=== PATIENT | female | born 1995 | race Caucasian/White ===

== ENCOUNTER 2017-09-17 10:18 | Day surgery (SDC) | payer OTHER, MEDICAID, SELFPAY ==
--- NOTE | 2017-09-17 | PATH_ITS ---
[facility] Accession Number: [id number] . 01 Material submitted: . NO SITE DESIGNATED . 01 Clinical history: . A: FOR H. PYLORI . 02 Diagnosis: Stomach Biopsies: Mild chronic gastritis involving fundic mucosa. Negative for evidence of Helicobacter on H/E stain. Negative for intestinal metaplasia. Negative for dysplasia and malignancy. V/09/19/2017 . 02 Electronically signed: . Lj Acosta MD, Pathologist NPI- [id number] . 01 Gross description: . Received in one formalin-filled container, labeled with the patient's name, labeled biopsies for H. pylori, are two 0.1-0.3 cm portions of tissue, entirely submitted in one cassette. ([id number]) /FRR . 02 Pathologist provided ICD-10: K29.70 . 02 CPT . 582065 Performed at: 01 [facility] [address] [id number] MD Bart Ruiz MD Phone: [phone] Performed at: 02 [facility] [address] [place], [place] [id number] MD Amandeep Burroughs MD Phone: [phone]
[2017-09-17 10:37] VITALS: BMI 26.9
[2017-09-17 10:51] VITALS: BP 113/70; PULSE 69; RESP 15; TEMP 36.2; O2SAT 98
[2017-09-17] MEDS: SODIUM CHLORIDE 0.9% 1,000 ML 200 ML IV (10:57)
--- NOTE | 2017-09-17 11:54 | PM.PREOP ---
Pre-operative Note Interval Note Pre-op Check: History & Physical Reviewed by Physician and Exam Performed ASA Class (for procedural sedation): II
--- NOTE | 2017-09-17 11:56 | PM.OP.ENDO ---
Operative Date/Time/Diagnoses - Date of procedure: 09/17/17 Time of procedure: 11:56 Pre-op diagnosis: Nausea Post-op diagnosis: same Procedure & Clinicians Study performed: EGD Same procedure as scheduled: Yes Indications: Nausea Surgeon: Tamiko Guy Procedure Notes Procedure in detail: After informed consent was obtained the patient was placed in the left lateral decubitus position. The video upper scope was placed into the oropharynx with the patient's help swallowed into the esophagus. The esophagus, stomach, and duodenum were carefully examined. On withdrawal retroflex view the GE junction was performed. Scope was removed patient tolerated procedure well Blood loss none Complications none Findings: 1. Normal esophagus 2. 2 x 8 cm structure on the greater curvature/fundus there was non mobile but somewhat soft to palpation with biopsy forceps. Overlying mucosa was normal. 3. Distal gastric erythema biopsies taken to rule out Helicobacter 4. Normal duodenal bulb and sweep Scope withdrawal time: na Sedation minutes: 15 Plan for aftercare: Follow-up on biopsies. Continue current medications. Office will call to schedule endoscopic ultrasound to evaluate this submucosal/extrinsic compression lesion in the upper part of the stomach.
--- NOTE | 2017-09-17 12:00 | P.OP.ENDO_ITS ---
Operative Date/Time/Diagnoses - Date of procedure: 09/17/17 Time of procedure: 11:56 Pre-op diagnosis: Nausea Post-op diagnosis: same Procedure & Clinicians Study performed: EGD Same procedure as scheduled: Yes Indications: Nausea Surgeon: Tamiko Guy Procedure Notes Procedure in detail: After informed consent was obtained the patient was placed in the left lateral decubitus position. The video upper scope was placed into the oropharynx with the patient's help swallowed into the esophagus. The esophagus, stomach, and duodenum were carefully examined. On withdrawal retroflex view the GE junction was performed. Scope was removed patient tolerated procedure well Blood loss none Complications none Findings: 1. Normal esophagus 2. 2 x 8 cm structure on the greater curvature/fundus there was non mobile but somewhat soft to palpation with biopsy forceps. Overlying mucosa was normal. 3. Distal gastric erythema biopsies taken to rule out Helicobacter 4. Normal duodenal bulb and sweep Scope withdrawal time: na Sedation minutes: 15 Plan for aftercare: Follow-up on biopsies. Continue current medications. Office will call to schedule endoscopic ultrasound to evaluate this submucosal/ extrinsic compression lesion in the upper part of the stomach.
[2017-09-17 12:15] VITALS: BP 98/57; PULSE 54; RESP 13; O2SAT 96
[2017-09-17] MEDS: MIDAZOLAM 5 MG/5 ML VIAL IV (12:16)
[2017-09-17] MEDS: fentaNYL 250 MCG/5 ML INJ IV (12:16)
[2017-09-17 12:23] VITALS: BP 103/65; PULSE 53; RESP 11; O2SAT 95
[2017-09-17 12:24] VITALS: TEMP 36.6
[2017-09-17 12:25] VITALS: BP 101/69; PULSE 70; RESP 14; O2SAT 97
[2017-09-17 13:00] VITALS: BP 114/72; PULSE 65; RESP 15; TEMP 36.4; O2SAT 100
== END 2017-09-17 13:15 | disposition home or self-care (01) ==
PROVIDERS: PCP Physician Assistant; Visit Provider Internal Medicine Gastroenterology
PROC: 0DJ08ZZ Inspection of Upper Intestinal Tract, Via Natural or Artificial Opening Endoscopic (ICD-10-PCS; CPT 43235; principal; 2017-09-17 11:30)
DX: K29.70 Gastritis, unspecified, without bleeding (principal); F12.99 Cannabis use, unspecified with unspecified cannabis-induced disorder; F41.9 Anxiety disorder, unspecified
CPT/HCPCS: 43239; J2250; J3010

== ENCOUNTER 2020-05-25 19:20 | Emergency (ER) | payer SELFPAY ==
[2020-05-25 19:29] VITALS: BP 136/75; PULSE 73; RESP 17; TEMP 37.2; O2SAT 99; BMI 30.2
--- NOTE | 2020-05-25 20:04 | ED.DENTAL ---
HPI - Dental/Oral General Chief complaint: Dental/Oral Stated complaint: states abcess tooth, pain Time Seen by Provider: 05/25/20 19:23 Source: patient Mode of arrival: Ambulatory Limitations: no limitations History of Present Illness HPI Narrative: 24-year-old woman with a history of bipolar disorder presents with increasing right lower jaw tooth pain. She notes that tooth number 30 was broken off at the base through 4 months ago and has a particularly bothered her. Today she is having increasing swelling on the outer angle of the jaw and in the submandibular area she is not noticing any specific drainage. Jwhm-vme-bkwrtih medications and clove oil have been ineffective in controlling her pain. She does have an appointment with her dentist on June 02 for definitive care. The dentist recommended that she come to the emergency room for more urgent pain control. Onset (ago): hour(s) Duration: worsening Severity: severe Severity scale (1-10): 8 Relieving factors: nothing Exacerbating factors: nothing Context: poor dental care Related Data Previous Rx's Medication Instructions Recorded buspirone 15 mg tablet 15 mg PO QAM PRN #90 tab 06/04/19 metoclopramide HCl 10 mg tablet 10 mg PO QAC #60 tab 12/15/19 omeprazole 20 mg capsule,delayed 20 mg PO BID #180 cap 12/15/19 release fluoxetine 10 mg capsule 10 mg PO DAILY #30 cap 04/09/20 amoxicillin 500 mg PO TID #21 cap 05/25/20 oxycodone-acetaminophen 1 tab PO Q6H PRN #10 tab 05/25/20 Allergies Allergy/AdvReac Type Severity Reaction Status Date / Time ondansetron [From Zofran] AdvReac Mild Hives Verified 12/15/19 11:36 Review of Systems Review of Systems ROS Unobtainable: All systems reviewed & are unremarkable except as noted in HPI and below Patient History Medical History Contraception management GERD (gastroesophageal reflux disease) Surgical History Status post adenoidectomy Status post myringotomy with insertion of tube Family History Grandfather Age: 85 Melanoma Hypertension Hyperlipidemia Stroke Grandmother Age: 81 Heart disease Hypertension Hyperlipidemia Mother Age: 49 Hypertension Hyperlipidemia Psoriasis Psoriatic arthritis Social History household members: family Smoking Status: Never smoker second hand exposure: Yes (my fiance smokes around me outside.) alcohol intake: current (socially ) substance use type: marijuana (smokes every day ) Smoking Status: Never smoker alcohol intake frequency: holidays/special occasions only Substance Use Type: marijuana Exam Narrative Exam Narrative: General: Alert appropriate in no acute distress HEENT: Multiple dental caries. Tooth number 30 with fracture at the gumline. No obvious pointing abscess or drainage intraorally. Positive submandibular adenopathy and swelling over the angle of the jaw without warmth or pointing abscess formation. Respiratory: Able to speak in full sentences, no obvious respiratory distress Skin: No obvious rashes, warm and dry Neurologic: Grossly intact no obvious asymmetries or abnormalities Psych, appropriate insight and affect, cooperative Initial Vital Signs Initial Vital Signs: Vital Signs Temperature 99.0 F 05/25/20 19:29 Pulse Rate 73 05/25/20 19:29 Respiratory Rate 17 05/25/20 19:29 Blood Pressure 136/75 05/25/20 19:29 Pulse Oximetry 99 05/25/20 19:29 Course Orders Ordered: Discontinued Medications Amoxicillin (Amoxicillin 250 Mg Capsule) 500 mg PO NOW ONE Stop: 05/25/20 20:01 Ketorolac Tromethamine (Ketorolac 60 Mg/2 Ml Vial) 30 mg IM NOW ONE Stop: 05/25/20 20:00 Oxycodone/Acetaminophen (Oxycodone/Acetaminophen 5/325 Tablet) 1 tab PO NOW ONE Stop: 05/25/20 20:00 Vital Signs Vital signs: Vital Signs - 8 hr 05/25/20 19:29 Temperature 99.0 F Pulse Rate 73 Respiratory Rate 17 Blood Pressure 136/75 Pulse Oximetry 99 MDM - Dental/Oral MDM Narrative Medical decision making narrative: 24-year-old woman with a broken tooth now apparently developing into a dental infection. Will be treated with amoxicillin and pain control while she is awaiting definitive care with her dentist as scheduled. She is safe for home discharge Discharge Plan Departure Patient Disposition: Home Clinical Impression: Toothache, Dental abscess Fracture of tooth Qualifiers: Encounter type: initial encounter Fracture type: closed Qualified Code(s): S02.5XXA - Fracture of tooth (traumatic), initial encounter for closed fracture Instructions: DI for Dental Pain Activity Restrictions/Additional Instructions: Thank you for coming in today I suspect that tooth that is been broken out for a couple of months is getting an infection at the tip of the tooth still in your jaw. I am going to start you on amoxicillin. A prescription has been electronically transmitted to [facility] in [place]. Using 400 mg of ibuprofen (2 qhmd-cts-wvjycqd pills) and 1 Tylenol every 6 hours can be very helpful in controlling pain. For severe pain you can use 400 mg of ibuprofen and 1 Percocet Please keep your appointment scheduled on June 02 with your dentist. If you feel that things are getting worse please return to the ER Prescriptions: New oxycodone-acetaminophen 5-325 mg tablet 1 tab PO Q6H PRN (Reason: pain) Qty: 10 RF: 0 amoxicillin 500 mg capsule 500 mg PO TID Qty: 21 RF: 0 No Action buspirone 15 mg tablet 15 mg PO QAM PRN (Reason: ANXIETY) Qty: 90 RF: 1 fluoxetine 10 mg capsule 10 mg PO DAILY Qty: 30 RF: 1 metoclopramide HCl [Reglan] 10 mg tablet 10 mg PO QAC Qty: 60 RF: 0 omeprazole 20 mg capsule,delayed release(DR/EC) 20 mg PO BID Qty: 180 RF: 3 Referrals: Yasir Lucia DO [Primary Care Provider] -
[2020-05-25] MEDS: KETOROLAC 60 MG/2 ML VIAL 30 MG IM (20:07)
[2020-05-25] MEDS: OXYCODONE/ACETAMINOPHEN 5/325 TABLET 1 TAB PO (20:07)
[2020-05-25] MEDS: AMOXICILLIN 250 MG CAPSULE 500 MG PO (20:07)
--- NOTE | 2020-05-25 20:11 | PC.NURSE ---
Pt states she cracked a back right molar two months ago; was unable to get dental care at the time and it just started hurting today; she tried to arrange for a dentist appointment today but the first available appointment is in two weeks. She states she is in too much pain to wait for this appointment.
[2020-05-25 20:21] VITALS: BP 138/70; PULSE 79; RESP 16; TEMP 37.2; O2SAT 100
== END 2020-05-25 20:22 | disposition home or self-care (01) ==
PROVIDERS: Emergency Provider Emergency Medicine; PCP Family Medicine
DX: S02.5XXA Fracture of tooth (traumatic), initial encounter for closed fracture (principal); K04.7 Periapical abscess without sinus
CPT/HCPCS: 96372; 99281; 99283; J1885

== ENCOUNTER 2020-10-02 13:18 | Emergency (ER) | payer SELFPAY ==
[2020-10-02 13:30] VITALS: BP 126/75; PULSE 75; RESP 20; TEMP 36.5; O2SAT 99
[2020-10-02] MEDS: SODIUM CHLORIDE 0.9% 1,000 ML 1000 ML IV (14:07)
[2020-10-02 14:17] LABS: Add Manual Diff / Slide Review NO; Basophils Absolute Auto 100 /uL (0-100); Basophils Percent Auto 0.6 % (0-2); Eosinophils Absolute Auto 200 /uL (0-450); Eosinophils Percent Auto 2.4 % (2-4); Hematocrit 40.2 % (36-46); Hemoglobin 13.8 g/dL (12.0-16.0); Lymphocytes Absolute Auto 2700 /uL (1100-4500); Lymphocytes Percent Auto 30.6 % (25-40); Mean Corpuscular HGB Conc 34.2 % (30-36); Mean Corpuscular Volume 90.5 fL (80-100); Monocytes Absolute Auto 400 /uL (0-900); Monocytes Percent Auto 4.9 % (3-14); Neutrophils Absolute Auto 5300 /uL (1500-7000); Neutrophils Percent Auto 61.5 % (50-75); Platelet Count 273 X10^3/uL (150-400); Red Blood Cell Count 4.45 X10^6/uL (4.0-5.2); Red Cell Distribution Width 12.8 % (11.6-14.8); White Blood Cell Count 8.7 X10^3/uL (4.5-11.0)
[2020-10-02 14:28] LABS: Alanine Aminotransferase 20 IU/L (<35); Albumin 4.3 g/dL (3.5-5.0); Albumin Globulin Ratio 1.3 (1.0-2.8); Alkaline Phosphatase 85 U/L (38-126); Aspartate Aminotransferase 27 IU/L (14-36); BUN Creatinine Ratio 22.9 (6-22); Bilirubin Total 0.5 mg/dL (0.2-1.3); Blood Urea Nitrogen 11 mg/dL (7-17); Calcium 9.4 mg/dL (8.4-10.2); Carbon Dioxide 27 mmol/L (22-32); Chloride 107 mmol/L (98-107); Estimated Glomerular Filt Rate > 60.0 mL/min (>60); Globulin 3.2 g/dL (1.7-4.1); Glucose 84 mg/dL (70-100); HEMOLYSIS < 15 (0-50); Lipase 52 U/L (23-300); Potassium 3.5 mmol/L (3.4-5.1); Sodium 141 mmol/L (137-145); Total Protein 7.5 g/dL (6.3-8.2)
[2020-10-02 15:06] LABS: Bacteria Urine Occasional (0-1); RBC Urine 0-1/HPF (0-5/HPF); Squamous Epithelial Cell Urine 1-5 /HPF (0-5/HPF); WBC Urine 1-5/HPF (0-5/HPF)
[2020-10-02 15:07] LABS: Culture Indicated Urine Cult Not Indicated
--- NOTE | 2020-10-02 15:20 | ED_ITS ---
HPI - Nausea/Vomiting/Diarrhea General Chief complaint: Nausea/Vomiting/Diarrhea Stated complaint: Puking Since Yesterday Time Seen by Provider: 10/02/20 15:09 Source: patient Mode of arrival: Ambulatory History of Present Illness HPI Narrative: Patient is a 24-year-old female who presents with nausea vomiting that started yesterday. She denies any abdominal pain or diarrhea. She is unable to keep anything down. No one else is sick. No fever or chills. She states that she is allergic to Zofran it gives her hives. Related Data Previous Rx's Medication Instructions Recorded buspirone 15 mg tablet 15 mg PO QAM PRN #90 tab 06/04/19 metoclopramide HCl 10 mg tablet 10 mg PO QAC #60 tab 12/15/19 (Reglan) omeprazole 20 mg capsule,delayed 20 mg PO BID #180 cap 12/15/19 release fluoxetine 10 mg capsule 10 mg PO DAILY #30 cap 04/09/20 amoxicillin 500 mg capsule 500 mg PO TID #21 cap 05/25/20 oxycodone-acetaminophen 5 mg-325 1 tab PO Q6H PRN #10 tab 05/25/20 mg tablet promethazine 25 mg tablet 25 mg PO Q6H PRN #10 tab 10/02/20 Allergies Allergy/AdvReac Type Severity Reaction Status Date / Time ondansetron [From Zofran] AdvReac Mild Hives Verified 12/15/19 11:36 Review of Systems Review of Systems Narrative: GENERAL: Denies chills, fatigue, malaise, fever, sweats, travel HEENT: Denies sinus pain, ear pain, sore throat, difficulty swallowing, neck pain RESPIRATORY: Denies dyspnea, cough, wheezing, hemoptysis, sputum. CARDIOVASCULAR: Denies chest pain, palpitations, orthopnea, edema GASTROINTESTINAL: See HPI : Denies dysuria, frequency, incontinence, hematuria, urinary retention, flank pain. MUSCULOSKELETAL: Denies weakness, joint pain, or bony pain SKIN: No rash, no erythema, no pruritus NEUROLOGIC: Denies weakness, dizziness, headache, numbness, change in speech, confusion PSYCHIATRIC: No concerning psychosocial issues. 12 point review of systems is negative except for those stated above and HPI Patient History Medical History Contraception management GERD (gastroesophageal reflux disease) Surgical History Status post adenoidectomy Status post myringotomy with insertion of tube Family History Grandfather Age: 85 Melanoma Hypertension Hyperlipidemia Stroke Grandmother Age: 81 Heart disease Hypertension Hyperlipidemia Mother Age: 49 Hypertension Hyperlipidemia Psoriasis Psoriatic arthritis Social History household members: family Smoking Status: Never smoker second hand exposure: Yes (my fiance smokes around me outside.) alcohol intake: current (socially ) substance use type: marijuana (smokes every day ) Smoking Status: Never smoker alcohol intake frequency: holidays/special occasions only Substance Use Type: marijuana Exam Initial Vital Signs Initial Vital Signs: Vital Signs Temperature 97.7 F 10/02/20 13:30 Pulse Rate 75 10/02/20 13:30 Respiratory Rate 20 10/02/20 13:30 Blood Pressure 126/75 10/02/20 13:30 Pulse Oximetry 99 10/02/20 13:30 GENERAL: Alert well-appearing 24-year-old female and in no acute distress. HEENT: Head atraumatic,EOMI, pupils reactive, face symmetric, moist mucous memb ranes CARDIOVASCULAR: Regular rate and rhythm without murmurs, rubs or gallops. RESPIRATORY: Breath sounds equal bilaterally, no wheezes rales or rhonchi. ABDOMEN: Soft, nontender. Normoactive bowel sounds all 4 quadrants. No guarding or rebound. EXTREMITIES: Normal range of motion, no clubbing or edema. Neurovascularly intact NEUROLOGICAL: Alert and oriented x4.Normal gait and speech. SKIN: Warm, dry, no laceration, no petechiae, no rashes or lesions. Course Orders Ordered: ED Orders 10/02/20 14:05 Complete Blood Count AUTO DIFF Stat Comprehensive Metabolic Panel Stat Lipase Stat 10/02/20 14:21 Urine Microscopic Stat Discontinued Medications Sodium Chloride (Normal Saline 0.9%) 1,000 mls @ 1,000 mls/hr IV BOLUS ONE Stop: 10/02/20 14:40 Last Admin: 10/02/20 14:07 Dose: 1,000 mls/hr Documented by: SMICHEAU Metoclopramide HCl (Metoclopramide 10 Mg/2 Ml Inj) 10 mg IV NOW ONE Stop: 10/02/20 15:19 Last Admin: 10/02/20 15:37 Dose: 10 mg Documented by: ASHTYN Ondansetron HCl (Ondansetron 4 Mg/2 Ml Inj) 4 mg IV NOW ONE Stop: 10/02/20 13:42 Last Admin: 10/02/20 14:12 Dose: Not Given Documented by: ASHTYN Vital Signs Vital signs: Vital Signs - 8 hr 10/02/20 13:30 10/02/20 16:08 Temperature 97.7 F Pulse Rate 75 75 Respiratory Rate 20 16 Blood Pressure 126/75 119/74 Pulse Oximetry 99 97 MDM - Nausea/Vomiting/Diarrhea Lab Data Result diagrams: 10/02/20 14:05 10/02/20 14:05 Labs: Lab Results 10/02/20 10/02/20 10/02/20 Range/Units 14:05 14:05 14:21 WBC 8.7 (4.5-11.0) X10^3/uL RBC 4.45 (4.0-5.2) X10^6/uL Hgb 13.8 (12.0-16.0) g/dL Hct 40.2 (36-46) % MCV 90.5 (80-100) fL MCH 31.0 (26-34) PG MCHC 34.2 (30-36) % RDW 12.8 (11.6-14.8) % Plt Count 273 (150-400) X10^3/uL Neut % (Auto) 61.5 (50-75) % Lymph % (Auto) 30.6 (25-40) % Garrett % (Auto) 4.9 (3-14) % Eos % (Auto) 2.4 (2-4) % Baso % (Auto) 0.6 (0-2) % Neut # (Auto) 5300 (3524-2737) /uL Lymph # (Auto) 2700 (0970-0813) /uL Garrett # (Auto) 400 (0-900) /uL Eos # (Auto) 200 (0-450) /uL Baso # (Auto) 100 (0-100) /uL Sodium 141 (137-145) mmol/L Potassium 3.5 (3.4-5.1) mmol/L Chloride 107 (98-107) mmol/L Carbon Dioxide 27 (22-32) mmol/L BUN 11 (7-17) mg/dL Creatinine 0.48 L (0.52-1.04) mg/dL Estimated GFR > 60.0 (>60) mL/min BUN/Creatinine Ratio 22.9 H (6-22) Glucose 84 (70-100) mg/dL Calcium 9.4 (8.4-10.2) mg/dL Total Bilirubin 0.5 (0.2-1.3) mg/dL AST 27 (14-36) IU/L ALT 20 (<35) IU/L Alkaline Phosphatase 85 (38-126) U/L Total Protein 7.5 (6.3-8.2) g/dL Albumin 4.3 (3.5-5.0) g/dL Globulin 3.2 (1.7-4.1) g/dL Albumin/Globulin Ratio 1.3 (1.0-2.8) Lipase 52 (23-300) U/L Urine RBC 0-1/hpf (0-5/HPF) Urine WBC 1-5/hpf (0-5/HPF) Ur Squamous Epith Cells 1-5 /hpf (0-5/HPF) Urine Bacteria Occasional (0-1) (None) Ur Culture Indicated? Cult not indicated Point of Care Testing Test Results Negative Urine Dip Bedside Urine Glucose Negative Bedside Urine Bilirubin - Negative Bedside Urine Ketone - Negative Urine Specific [place] 1.025 Bedside Urine Occult Blood +/- Bedside Urine pH 7 Bedside Urine Protein - Negative Bedside Urine Urobilinogen - Negative Bedside Urine Nitrite - Negative Bedside Urine Leukocytes - Negative Esterase MDM Narrative Medical decision making narrative: The patient overall appears well. She is now tolerating fluids. She does have an allergy to Zofran but is given 1 dose of Reglan. She said she was previously given a prescription for Reglan but it was over 500 dollars. I will send her home with a prescription for Phenergan hopefully that is cheaper. Discussed oral rehydration techniques with her and when to return to the emergency department. Blood work is reassuring abdomen is soft and no need for imaging. Symptoms are most consistent with gastroenteritis. Discharge Plan Departure Patient Disposition: Home Clinical Impression: Gastroenteritis Instructions: DI for Viral Gastroenteritis -- Adult Activity Restrictions/Additional Instructions: *You have been diagnosed with gastroenteritis *What to do: At this time recommend increasing fluid intake as tolerated with Gatorade or Gatorade like product. Small sips frequently. *Continue to take medications as directed Phenergan 25 mg every 6 hours if needed for nausea or vomiting-->SENT TO [facility] *Follow up with your primary care provider in 2-3 days *Return to ER if you should have inability to tolerate fluids, worsening abdominal pain, dizziness lightheadedness or any new, worsening or concerning symptoms Prescriptions: New promethazine 25 mg tablet 25 mg PO Q6H PRN (Reason: nausea and vomiting) Qty: 10 RF: 0 No Action buspirone 15 mg tablet 15 mg PO QAM PRN (Reason: ANXIETY) Qty: 90 RF: 1 fluoxetine 10 mg capsule 10 mg PO DAILY Qty: 30 RF: 1 metoclopramide HCl [Reglan] 10 mg tablet 10 mg PO QAC Qty: 60 RF: 0 omeprazole 20 mg capsule,delayed release(DR/EC) 20 mg PO BID Qty: 180 RF: 3 oxycodone-acetaminophen 5-325 mg tablet 1 tab PO Q6H PRN (Reason: pain) Qty: 10 RF: 0 amoxicillin 500 mg capsule 500 mg PO TID Qty: 21 RF: 0 Referrals: Yasir Lucia, [Primary Care Provider] -
[2020-10-02] MEDS: METOCLOPRAMIDE 10 MG/2 ML INJ IV (15:37)
[2020-10-02 16:08] VITALS: BP 119/74; PULSE 75; RESP 16; O2SAT 97
--- NOTE | 2020-10-08 12:54 | PC.NURSE ---
Late entry NS 1000 mL IV infused at 1507 hours.
== END 2020-10-02 16:10 | disposition home or self-care (01) ==
PROVIDERS: Emergency Medicine; Emergency Provider Emergency Medicine; PCP Family Medicine
DX: K52.9 Noninfective gastroenteritis and colitis, unspecified (principal)
CPT/HCPCS: 36415; 80053; 81003; 81015; 81025; 83690; 85025; 96361; 96374; 99284; J2405; J2765

== ENCOUNTER → 2022-05-30 12:05 | Outpatient (CLI) | payer OTHER, SELFPAY ==
--- NOTE | 2022-05-30 12:08 | DI.US.S_ITS ---
PROCEDURE: US OB <= 14 WEEKS FETUS INDICATIONS: dating and viability OUTSIDE/PRIOR DATING DATA: Last menstrual period (LMP): 04/21/2022. LMP-based estimated date of delivery (LIZ): 01/26/2023. First dating scan (date and location): 05/30/2022. Estimated date of delivery (LIZ) from first dating scan: 01/24/2023. TECHNIQUE: Real-time scanning was performed of the fetus and maternal pelvic organs, with image documentation. Endovaginal scanning was also performed to better visualize the fetus and maternal ovaries. COMPARISON: None. FINDINGS: There is a small intrauterine gestation with pole could the estimated gestational age is 5 weeks 5 days no cardiac activity in the stomach. Note is made of a normal appearing yolk sac. Maternal organs: Ovaries are grossly normal. IMPRESSION: 1. The ultrasound findings are compatible with early with an intrauterine gestation sac and pole. cardiac activity is not detectable at this time. Ultrasound dating is concordant with clinical dating. Please correlate with quantitative serum beta HCG, if available. Follow-up imaging as needed. 2. Normal maternal ovaries. We strive to produce accurate, complete, and clear reports of imaging services. To assist us in improving patient care, this report was composed using standard report templates and voice recognition software. Therefore, it may contain abnormal punctuation, insertions and/or omissions. Occasional wrong-word or sound-alike substitutions may occur. Though we review the report and make efforts to correct it, we do recommend that the report be read carefully in proper context to recognize any text inaccuracies. Dictated by: Essie Pittman M.D. on 05/30/2022 at 18:18 Approved by: Essie Pittman M.D. on 05/30/2022 at 20:03
== END ==
PROVIDERS: PCP Obstetrics & Gynecology; Referring Provider Obstetrics & Gynecology; Visit Provider Obstetrics & Gynecology
DX: Z34.81 Encounter for supervision of other normal pregnancy, first trimester (principal); Z3A.01 Less than 8 weeks gestation of pregnancy
CPT/HCPCS: 76801; 76817

== ENCOUNTER → 2022-06-08 08:00 | Outpatient (CLI) | payer OTHER, SELFPAY ==
[2022-06-08 09:59] LABS: HCG Quantitative /Beta subunit 62571 mIU/mL
== END ==
PROVIDERS: PCP Obstetrics & Gynecology; Referring Provider Specialist; Visit Provider Specialist
DX: Z34.90 Encounter for supervision of normal pregnancy, unspecified, unspecified trimester (principal)
CPT/HCPCS: 36415; 84702

== ENCOUNTER → 2022-07-18 11:26 | Outpatient (CLI) | payer OTHER, SELFPAY | PROVIDERS: Visit Provider Obstetrics & Gynecology | DX: Z34.81 Encounter for supervision of other normal pregnancy, first trimester (principal) | CPT/HCPCS: 87086 ==

== ENCOUNTER → 2022-07-18 11:59 | Outpatient (CLI) | payer OTHER, SELFPAY ==
[2022-07-18 13:09] LABS: Add Manual Diff / Slide Review NO; Basophils Absolute Auto 0 /uL (0-100); Basophils Percent Auto 0.4 % (0-2); Eosinophils Absolute Auto 200 /uL (0-450); Eosinophils Percent Auto 2.1 % (2-4); Hematocrit 35.9 % (36-46); Hemoglobin 12.7 g/dL (12.0-16.0); Lymphocytes Absolute Auto 2300 /uL (1100-4500); Mean Corpuscular HGB Conc 35.3 % (30-36); Mean Corpuscular Hemoglobin 32.3 PG (26-34); Mean Corpuscular Volume 91.5 fL (80-100); Monocytes Absolute Auto 500 /uL (0-900); Monocytes Percent Auto 5.1 % (3-14); Neutrophils Absolute Auto 7500 /uL (1500-7000); Neutrophils Percent Auto 70.4 % (50-75); Platelet Count 232 X10^3/uL (150-400); Red Blood Cell Count 3.93 X10^6/uL (4.0-5.2); White Blood Cell Count 10.6 X10^3/uL (4.5-11.0)
[2022-07-19 09:34] LABS: RPR Screen Non Reactive (Non Reactive); Varicella IgG Antibody 796 index (Immune >165)
[2022-07-19 15:45] LABS: Hepatitis B Surface Antigen NEGATIVE s/c (NEGATIVE)
[2022-07-19 16:23] LABS: HIV 1 & 2 Ab/Ag 4th Gen Combo NEGATIVE (NEGATIVE); Hep C Virus Ab w/Reflex Quant NEGATIVE s/c (NEGATIVE)
== END ==
PROVIDERS: Referring Provider Obstetrics & Gynecology; Visit Provider Obstetrics & Gynecology
DX: Z34.81 Encounter for supervision of other normal pregnancy, first trimester (principal)
CPT/HCPCS: 36415; 80055; 86787; 86803; 86850; 86900; 86901; 87086; 87389

== ENCOUNTER → 2022-08-15 09:17 | Outpatient (CLI) | payer OTHER, SELFPAY ==
[2022-08-17 19:07] LABS: AFP, Serum 29.3 ng/mL (.); Estriol, Free 0.89 ng/mL (.); Inhibin A, Dimeric 140.63 pg/mL (.); Inhibin A, MoM 1.04 (.); Maternal Ethnicity Caucasian (.); Maternal Weight 184 lbs (.); Number of Fetuses No (.); OSBR Risk 1 IN 10000 (.); Results Report (.); Test Results *Screen Negative* (.); hCG, MoM 0.36 (.); hCG, Serum 11802 mIU/mL (.)
== END ==
PROVIDERS: Referring Provider Obstetrics & Gynecology; Visit Provider Obstetrics & Gynecology
DX: Z34.82 Encounter for supervision of other normal pregnancy, second trimester (principal); Z3A.16 16 weeks gestation of pregnancy
CPT/HCPCS: 36415; 82105; 82677; 84702; 86336

== ENCOUNTER → 2022-09-06 14:00 | Outpatient (CLI) | payer OTHER, SELFPAY ==
--- NOTE | 2022-09-06 14:01 | DI.US.S_ITS ---
PROCEDURE: US OB >= 14 WEEKS FETUS INDICATIONS: 20 week anatomy scan OUTSIDE/PRIOR DATING DATA: Last menstrual period (LMP): 04/21/2022. LMP-based estimated date of delivery (LIZ): 01/26/2023. First dating scan (date and location): 05/30/2022. Estimated date of delivery (LIZ) from first dating scan: 01/24/2023. The calculations are made using the working LIZ of 01/26/2023. TECHNIQUE: Real-time scanning was performed of the fetus, with image documentation and biometric measurements. COMPARISON: [facility], US, US OB <= 14 WEEKS FETUS, 05/30/2022, 12:27. [facility], US, US ABDOMEN COMPLETE, 01/15/2022, 16:28. FINDINGS: General: A single living intrauterine gestation is present. Presentation: Variable. Placenta: Placental position is anterior , without previa. Amniotic fluid index: 10.0 cm, normal range is 5-24 cm. Single deepest vertical pocket is 4.1 cm. heart rate: 150 beats per minute. Maternal cervical canal: 4 point cm long. Normal lower limit is 2.5 cm. biometrics: Biparietal diameter: 20 weeks 5 days Head circumference: 19 weeks 6 days Abdominal circumference: 20 weeks 1 day Femur length: 19 weeks 6 days Clinically estimated gestational age: 19 weeks 5 days Composite gestational age from present scan: 20 weeks 1 day Estimated weight and percentile: 326 g; 62% for gestational age. Anatomic survey: Neuro: Ventricles are non-dilated at less than 10 mm. Cisterna magna is normal at 3-11 mm. Cerebellum is normal in size and morphology. Nuchal skin fold: Normal at less than 6 mm between 14-21 weeks gestational age. Face: Nose and lips, facial profile are not well seen. Spine: No evidence for spina bifida. Heart: 4-chambered heart and ventricular outflow tracts are not well seen. Diaphragm: Diaphragm is not well seen. Stomach: Left-sided stomach is present. Kidneys: No hydronephrosis. Normal is less than 5 mm in 2nd trimester, less than 7 mm in 3rd trimester. Cord: 3-vessel cord has orthotopic insertion. Bladder: Normal in size. Extremities: All 4 extremities identified. IMPRESSION: 1. A single living intrauterine gestation with appropriate interval growth. 2. facial structures, heart and diaphragm are not well seen. Otherwise normal anatomic survey. Recommend repeat exam. 3. weight is estimated at 62% for gestational age. We strive to produce accurate, complete, and clear reports of imaging services. To assist us in improving patient care, this report was composed using standard report templates and voice recognition software. Therefore, it may contain abnormal punctuation, insertions and/or omissions. Occasional wrong-word or sound-alike substitutions may occur. Though we review the report and make efforts to correct it, we do recommend that the report be read carefully in proper context to recognize any text inaccuracies. Dictated by: Essie Pittman M.D. on 09/06/2022 at 15:00 Approved by: Essie Pittman M.D. on 09/06/2022 at 15:06
== END ==
PROVIDERS: Referring Provider Obstetrics & Gynecology; Visit Provider Obstetrics & Gynecology
DX: Z34.82 Encounter for supervision of other normal pregnancy, second trimester (principal); Z3A.20 20 weeks gestation of pregnancy
CPT/HCPCS: 76811

== ENCOUNTER → 2022-09-23 15:53 | Outpatient (CLI) | payer OTHER, SELFPAY ==
--- NOTE | 2022-09-23 15:54 | DI.US.S_ITS ---
PROCEDURE: US OB FOLLOW UP INDICATIONS: RE-EVALUATE OUTSIDE/PRIOR DATING DATA: Last menstrual period (LMP): 04/21/2022. LMP-based estimated date of delivery (LIZ): 01/26/2023. First dating scan (date and location): 05/30/2022. Estimated date of delivery (LIZ) from first dating scan: 01/24/2023. TECHNIQUE: Real-time scanning was performed of the fetus, with image documentation. Endovaginal scanning: Not performed COMPARISON: [facility], OB >= 14 WEEKS FETUS, 09/06/2022, 14:16. FINDINGS: A single living intrauterine gestation is present. Presentation: Breech. Placenta: Placental position is anterior, without previa. Amniotic fluid index: 20.1 cm, normal range is 5-24 cm. Single deepest vertical pocket is 6.0 cm. heart rate: 147 beats per minute. Maternal cervical canal: 3.3 cm long. Normal lower limit is 2.5 cm. estimated gestational age: 22 weeks 1 day nose/lips, profile, four-chamber cardiac view, and diaphragm visualized and appear within normal limits. Right and left ventricular outflow tract suboptimally visualized. IMPRESSION: 1. Single living intrauterine . 2. nose/lips, profile, four-chamber cardiac view, and diaphragm are visualized and appear within normal limits. 3. Right and left ventricular outflow tracts are suboptimally visualized. Attention on follow-up recommended. Dictated by: Mansoor Nelson M.D. on 09/23/2022 at 18:36 Approved by: Mansoor Nelson M.D. on 09/23/2022 at 18:40
== END ==
PROVIDERS: Referring Provider Obstetrics & Gynecology; Visit Provider Obstetrics & Gynecology
DX: Z36.2 Encounter for other antenatal screening follow-up (principal); Z3A.22 22 weeks gestation of pregnancy
CPT/HCPCS: 76816

== ENCOUNTER → 2022-10-31 15:25 | Outpatient (CLI) | payer OTHER, SELFPAY ==
[2022-10-31 17:52] LABS: Hematocrit 31.3 % (36-46); Hemoglobin 10.9 g/dL (12.0-16.0)
[2022-10-31 18:17] LABS: GTT (PREG) 1 Hour PP 50gm Dose 167 mg/dL (76-139)
== END ==
PROVIDERS: Referring Provider Obstetrics & Gynecology; Visit Provider Obstetrics & Gynecology
DX: Z34.83 Encounter for supervision of other normal pregnancy, third trimester (principal); Z3A.28 28 weeks gestation of pregnancy
CPT/HCPCS: 36415; 82950; 85014; 85018

== ENCOUNTER → 2022-12-02 09:53 | Outpatient (CLI) | payer OTHER, SELFPAY ==
[2022-12-02 11:24] LABS: Glucose Fasting Gestational 94 mg/dL (76-95)
[2022-12-02 12:16] LABS: Glucose 1 Hour Gest 168 mg/dL (76-180)
[2022-12-02 12:51] LABS: Glucose 2 Hour Gest 165 mg/dL (76-155)
[2022-12-02 14:37] LABS: Glucose Tol Interp,Gestational INTERPRETATION
[2022-12-02 14:41] LABS: Glucose 3 Hour Gest 123 mg/dL (76-140)
== END ==
PROVIDERS: Referring Provider Obstetrics & Gynecology; Visit Provider Obstetrics & Gynecology
DX: O99.810 Abnormal glucose complicating pregnancy (principal); Z3A.00 Weeks of gestation of pregnancy not specified
CPT/HCPCS: 36415; 82951; 82952

== ENCOUNTER → 2023-01-01 13:54 | Outpatient (CLI) | payer OTHER, SELFPAY ==
[2023-01-02 14:50] LABS: Strep Grp B PCR NEG for Grp B Strep
== END ==
PROVIDERS: Visit Provider Obstetrics & Gynecology
DX: Z34.83 Encounter for supervision of other normal pregnancy, third trimester (principal); Z3A.36 36 weeks gestation of pregnancy
CPT/HCPCS: 87653

== ENCOUNTER 2023-01-23 04:52 | Inpatient (IN) | payer OTHER, SELFPAY ==
[2023-01-23 06:33] LABS: Add Manual Diff / Slide Review NO; Basophils Absolute Auto 100 /uL (0-100); Basophils Percent Auto 0.8 % (0-2); Eosinophils Absolute Auto 100 /uL (0-450); Eosinophils Percent Auto 0.6 % (2-4); Hematocrit 35.4 % (36-46); Lymphocytes Absolute Auto 2500 /uL (1100-4500); Mean Corpuscular HGB Conc 33.8 % (30-36); Mean Corpuscular Volume 88.8 fL (80-100); Monocytes Absolute Auto 800 /uL (0-900); Monocytes Percent Auto 5.8 % (3-14); Neutrophils Absolute Auto 9600 /uL (1500-7000); Neutrophils Percent Auto 73.8 % (50-75); Platelet Count 215 X10^3/uL (150-400); Red Blood Cell Count 3.99 X10^6/uL (4.0-5.2); Red Cell Distribution Width 13.8 % (11.6-14.8)
--- NOTE | 2023-01-23 07:14 | PM.AN.REGBLK ---
Regional Block Pre-procedure Procedure: Continuous Lumbar Epidural for L&D Attending OB provider: Tamiko Bates PM/ROS narrative: at 39+ EGA, active labor, no obstetric or medical complications. ASA Class: II Labs: Hct 35.4 % (36-46) L 01/23/23 06:17 Plt Count 215 X10^3/uL (150-400) 01/23/23 06:17 Medications: Current Medications Generic Name Dose Route Start Last Admin Trade Name Freq PRN Reason Stop Dose Admin Carboprost Tromethamine 250 mcg 01/23/23 06:07 Carboprost 250 Mcg/Ml Ampul IM Q90M PRN Bleeding Diphenhydramine HCl 25 mg 01/23/23 06:11 Diphenhydramine 50 Mg/Ml Vial IV Q10M PRN Pruritis Ephedrine Sulfate 5 mg 01/23/23 06:11 Ephedrine 50 Mg/Ml Vial IV Q5M PRN Blood pressure decrease more than 20% of baseline. Oxytocin/Lactated Ringer's 30 unit in 500 mls @ 200 mls/hr 01/23/23 06:07 Oxytocin Premix IV CONT PRN Bleeding Protocol Tranexamic Acid 1,000 mg/ 100 mls @ 200 mls/hr 01/23/23 06:07 Sodium Chloride IV NOW PRN Bleeding Lactated Ringer's 1,000 mls @ 100 mls/hr 01/23/23 06:15 Lactated Ringers IV CONT KATELYN Bupivacaine HCl 25 ml/ Sodium 100 mls @ 6 mls/hr 01/23/23 06:15 Chloride EPIDURAL CONT KATELYN FENT 2MCG/ML BUPIV 0.1% EPI 200 mcg in 100 mls @ 6 mls/hr 01/23/23 06:45 Fentanyl/Bupiv/Ns 2mcg/Ml - 0.1% EPIDURAL CONT KATELYN Lidocaine HCl 20 ml 01/23/23 06:07 Lidocaine 1% 20 Ml INJ INTRA-OP PRN Post Delivery Methylergonovine Maleate 0.2 mg 01/23/23 06:07 Methylergonovine 0.2 Mg Tablet PO Q6HR PRN Heavy Bleeding Methylergonovine Maleate 0.2 mg 01/23/23 06:07 Methylergonovine 0.2 Mg/Ml Vial IM NOW PRN Bleeding Misoprostol 800 mcg 01/23/23 06:07 Misoprostol 200 Mcg Tablet AR NOW PRN Bleeding Misoprostol 400 mcg 01/23/23 06:07 Misoprostol 200 Mcg Tablet SL NOW PRN Bleeding Nalbuphine HCl 2.5 mg 01/23/23 06:11 Nalbuphine 20 Mg/Ml Ampul IV Q10M PRN Pruritis Naloxone HCl 0.2 mg 01/23/23 06:07 Naloxone 0.4 Mg/Ml Vial IV Q2MIN PRN Opiate Reversal Oxytocin 10 unit 01/23/23 06:07 Oxytocin 10 Unit/Ml Vial IM NOW PRN Bleeding Allergies: Allergies Allergy/AdvReac Type Severity Reaction Status Date / Time ondansetron [From Zofran] AdvReac Mild Hives Verified 01/22/23 15:04 Procedure Insertion date: 01/23/23 Insertion time: 06:56 Prep/Local: betadine x3 and 1% lidocaine Interspace: L3-4 Patient position: sitting Needle: 18 gauge [employer] (CSE: 27g Pencan through [employer], clear CSF, 2.5mg MPF bupiv) Loss of resistance with: saline JUAN at (cm): 5 Catheter placed at SKIN (cm): 11 Catheter in SPACE (cm): 6 Insertion: No CSF, No Blood, No Paresthesia with insertion, No Paresthesia with injection and No Test dose reaction Initial Medications TEST DOSE time: 06:58 TEST DOSE: 1.5% lidocaine with epinephrine 1:200k (mL): 3 BOLUS DOSE time: 07:09 BOLUS DOSE (mL): 4 BOLUS DOSE med: other (infusate) Infusion INFUSION: 0.125% bupivacaine and with fentanyl 2 mcg/mL Initial rate (mL/hr): 8 Post-procedure Anesthesia time START: 06:42 Anesthesia time END: 09:19 Post-procedure Anesthesia Assessment: Yes CV function: HR/BP stable, Yes Resp function: RR/sat/airway adequate, Yes Post-op hydration adequate, Yes Pain control adequate, Yes Nausea & vomiting absent, Yes Temperature > 36 C, Yes Mental status appropriate and No Anesthesia complications
--- NOTE | 2023-01-23 07:35 | PM.OBHP.1 ---
OB HPI Date/Time Date of admission: 01/23/23 Date Patient Seen: 01/23/23 Time Patient Seen: 07:10 History of Present Condition Chief complaint: Labor Narrative: Jane Patel is a 27 year old female at 39+4wks who presented to L&D for painful ctx. She was admitted and received an epidural, and shortly after her water broke. Comments: Forceps @ 37 wk 1st delivery Elevated 1 hour glucose, normal 3 hour glucose tolerance test Severo History of Present care: good care Dating criteria: LMP confirmed by 1st trimester US Obstetrical complications: none Medical complications: other (Hi syndrome) Preadmission Labs Blood type: A (+) positive -: Antibody screen: negative, Cystic fibrosis screen: unknown, GBS status: negative, HBsAG: negative, HIV: negative, HSV 1: negative, HSV 2: negative and RPR/VDLR: negative -: Chlamydia screen: not detected and Gonorrhea screen: not detected -: Rubella: not immune and Varicella: immune HCAB: negative PAP: Normal Quad screen: Normal 1 hr GTT: 167 3 hr GTT: 3 hr (normal) Evaluation Evaluation Baseline heart rate: 120 Variability: Moderate (11-25) monitor accelerations: Present Monitor Decelerations: Absent Contraction Frequency (minutes): 3 Status: Category l Dilation (cm): 9 Effacement (%): 100 station: 0 PFSH Medical History (Updated 01/22/23 @ 15:51 by Romaine Jacobs MD) Depression (~2018) Anxiety (~2018) Normal endoscopy Contraception management GERD (gastroesophageal reflux disease) Surgical History (Updated 07/20/22 @ 20:44 by Destiny Bermeo) Anesthesia History of endoscopy H/O wisdom tooth extraction History of tonsillectomy Status post adenoidectomy Status post myringotomy with insertion of tube Family History (Updated 07/20/22 @ 20:46 by Destiny Bermeo) Grandfather Melanoma Hypertension Hyperlipidemia Stroke Cancer Diabetes mellitus Grandmother Heart disease Hypertension Hyperlipidemia Diabetes mellitus Mother Age: 52 Hypertension Hyperlipidemia Psoriasis Psoriatic arthritis Father Duanes syndrome Adopted Social History marital status: number of children: 2 (one of her own, one stepdaugter) household members: spouse and children (both live w/ their other parents and say w/ pt on weekends) lives independently: Yes caregiver/support person: Yes housing: other (trailer) pets and animals: Yes (2 cats, managing litter boxes) education level: high school (part of sophomore year of high school) 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) current occupational exposures/hazards: No special vaishali needs: No travel history: over 6 months ago seatbelt use: always water heater temp set < 120 deg: Yes working smoke detector in home: Yes fire extinguisher in home: Yes carbon monox detector in home: Yes firearms in home: No do you feel safe at home: Yes Smoking Status: Former smoker (marijuana) second hand exposure: Yes (my fiance smokes around me outside.) alcohol intake: former (socially ) substance use type: marijuana (Advised not to use while /) during the past year weight has: remained stable well-balanced diet: about half the time daily servings fruits/ve-4 caffeine: Yes (rarely, aware of 200mg limit) Type(s) of exercise: walking frequency: 5-6 times per week Meds Home Medications and Allergies Home Medications Medication Instructions Recorded Confirmed Type prenat.vits,jud,cgo-zdsn-gavyw 1 tab PO DAILY 05/28/22 01/22/23 History omeprazole 40 mg capsule,delayed 40 mg PO DAILY #30 caps 10/07/22 01/22/23 Rx release metoclopramide HCl 5 mg tablet 5 mg PO QAC Nausea in 12/16/22 01/22/23 Rx (Reglan) #90 tabs Allergies Allergy/AdvReac Type Severity Reaction Status Date / Time ondansetron [From Zofran] AdvReac Mild Hives Verified 01/22/23 15:04 Review of Systems Review of Systems ROS: Yes All systems reviewed with the patient and are negative except as otherwise documented OB Exam Narrative Exam Narrative: vitals reviewed in OBIX, within normal limits HENMT Head: normal to inspection Resp Effort & Inspection: normal respiratory effort and able to speak in complete sentences Cardio Rate: regular rate Rhythm: regular rhythm Extremities Lower extremity: Yes normal to inspection GI Other: gravid, nontender, nondistended Presentation: vertex Amniotic Fluid: clear Objective Labs 01/23/23 06:17 Labs: Laboratory Results - last 24 hr 01/23/23 06:17 WBC 13.0 H RBC 3.99 L Hgb 12.0 Hct 35.4 L MCV 88.8 MCH 30.0 MCHC 33.8 RDW 13.8 Plt Count 215 Neut % (Auto) 73.8 Lymph % (Auto) 19.0 L [place] % (Auto) 5.8 Eos % (Auto) 0.6 L Baso % (Auto) 0.8 Neut # (Auto) 9600 H Lymph # (Auto) 2500 [place] # (Auto) 800 Eos # (Auto) 100 Baso # (Auto) 100 Blood Type A Positive Antibody Screen Negative Assessment and Plan Assessment and Plan Assessment and Plan narrative: 27yo at 39+4wks admitted in active labor. -CBC, T&S on admission -continuous EFM -epidural PRN -GBS neg, ppx not indicated -PPH risk low -VTE risk low, SCDs with epidural -anticipate L&D Counseling: Common procedures and interventions related to the management of were explained to the patient, including assistance at vaginal delivery with episiotomy, vacuum, or forceps, use of medications to stop premature labor or induce labor, and assessment including auscultation (listening to the heart), use of electronic monitoring (external and / or internal), and use of scalp electrode and/or intrauterine pressure catheter.? It was also explained that approximately 20-30% of mothers have a need for delivery during their labor course. It was explained to the patient that , labor and delivery are ordinarily normal physiological events and can be expected to provide a healthy outcome for mother and baby in the majority of cases. However, there are complications that may arise during , labor, and delivery, such as: hemorrhage requiring administration of blood and/or blood products, surgical intervention, possibly even hysterectomy for life-saving purposes; possibility of infection requiring antibiotics, prolonged hospital stay, and rarely surgical intervention; possibility of blood clots;? possibility of retained products of conception requiring surgical intervention;? possibility of serious tears or injury to the vagina, cervix, perineum, or rectum;? possibility of injury to abdominal structures if delivery is required;? and rarely maternal or may occur. Time Spent with Patient Total time spent with greater than 50% in coordination of care (as documented) at patient's floor/unit and/or counseling patient:: 25 - 35 minutes
[2023-01-23] MEDS: TERBUTALINE 1 MG/ML VIAL 0.25 MG SUBCUT (07:57)
[2023-01-23] MEDS: OXYTOCIN PREMIX 30 UNIT/500 ML PLAST..BAG 200 UNIT IV (09:12)
--- NOTE | 2023-01-23 09:48 | PM.OBPRVD ---
Labor & Delivery Delivery date: 01/23/23 Cervical ripening method: none Induction method: none Delivery monitor: external FHT and external uterine Route of delivery: L&D Laceration Description: Perineal - 2nd Degree Delivery repair: vicryl Quantitative Blood Loss: 200 Anesthesia Type: Epidural Narrative: /+1 with good maternal pushing. Head delivered, APRIL. Two nuchal cord noted. Reduced after delivery. Shoulders and body delivered with ease. Male placed on mother's abdomen. Delayed cord clamping. Fundus firm. Placenta delivered spontaneously and intact, 3vc. Vagina and perineum inspected. Second degree laceration repaired in usual fashion with 3-0 Vicryl. Hemostasis. EBL 200cc. Family bonding at bedside. Plan for aftercare: Routine care
[2023-01-23 10:31] VITALS: BP 130/82
[2023-01-23] MEDS: DERMOPLAST SPRAY 20% 60 ML 1 SPRAY TOP (11:25)
[2023-01-23 11:35] LABS: Urine N gonorrhoeae NOT DETECTED
[2023-01-23 11:43] LABS: Urine Chlamydia NOT DETECTED
[2023-01-23] MEDS: IBUPROFEN 400 MG TABLET 800 MG PO ×2 (12:57→22:16)
[2023-01-23] MEDS: ACETAMINOPHEN 325 MG TABLET 975 MG PO ×2 (13:06→22:17)
[2023-01-23] MEDS: DOCUSATE 100 MG CAPSULE PO (22:19)
--- NOTE | 2023-01-24 11:30 | PM.OBDS.1 ---
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 Following delivery, both she and her baby have done extremely well with the mother experiencing prompt return of bowel and bladder function, she is ambulating independently, tolerating regular diet, and her pain is well controlled with oral pain medications. She will be discharged at this time to home in an afebrile normotensive condition after counseling regarding precautionary symptoms, limitations activity, medications, and plans for follow-up which will be in 6 weeks. She states it at that time she will likely want to have a Nexplanon inserted for contraception. Medications at discharge will include resumption of all pre delivery medications and the patient will use [id number] Tylenol and/or ibuprofen as needed for pain relief. Peripartum Data Infant Delivery Method: Natural Vaginal Laceration Description: Perineal - 2nd Degree Episiotomy description: None Procedures: Continuous lumbar epidural placement Spontaneous vaginal complications: none [place] 1: Gender: Male Disposition of : home Status at Discharge Cognitive/behavioral status at discharge: oriented Functional status at discharge: independent ambulation Overall status at discharge: patient is progressing back to baseline Time Spent with Patient Time attestation: Total time spent providing and/or coordinating discharge services: Time spent: Less than 30 minutes Objective Labs 01/23/23 06:17 Labs: Laboratory Results - last 24 hr 01/23/23 08:58 Ur Chlamydia DNA (PCR) Not detected N gonorrhoeae DNA (PCR) Not detected Exam Const General: cooperative and comfortable Nutritional Appearance: average body habitus Orientation: alert and oriented x3 HENMT Head: normocephalic and atraumatic Ears: hearing grossly normal bilaterally Eyes Conjunctivae: conjunctivae normal Sclera: sclerae normal Neck Neck: normal visual inspection Resp Effort & Inspection: normal respiratory effort and able to speak in complete sentences GI Inspection: normal to inspection Palpation: soft, no hepatosplenomegaly, mass (U -4, minimally tender) and tender (Minimal) External Female Exam: other (OB laceration repair intact, minimal bleeding) Extrem Right lower extremity: normal to inspection Discharge Plan Discharge Plan Patient Disposition: Home Provider Discharge Comment: Please review the written instructions you received when you were discharged from the hospital. Your visit will be scheduled for 6 weeks after delivery and I look forward to seeing you then. If however in the meanwhile you have any issues, concerns, questions, please contact me either through the office phone at [phone], or via the patient. Discharge orders & Medications Prescriptions: Continued omeprazole 40 mg capsule,delayed release(DR/EC) 40 mg PO DAILY Qty: 30 12RF metoclopramide HCl [Reglan] 5 mg tablet 5 mg PO QAC Qty: 90 3RF Rx Instructions: administer 30 minutes before meals prenat.vits,jud,[id number] Tablet 1 tab PO DAILY Follow up/Referrals: Romaine Jacobs MD [Physician] - (6 week Appt w/ Dr. Jacobs: @ 2pm) Discharge Health Status Multidrug resistant organism: No MDRO Diet/Activity/Treatments Diet: Diet as Tolerated Activity: As tolerated Other treatments: Counter Tylenol and/or ibuprofen may be used for additional relief [id number] stool softeners and/or MiraLax may be used as needed for constipation. Skin/Wound/Dressing Care Report to your healthcare provider any signs of infection, such as:: chills, fever, increased pain, unusual drainage and unusual redness Dressing: N/A Visit Report/Discharge Packet Instructions: DI for Labor and Delivery, Vaginal , DI for and Nipple Soreness Stand Alone Forms: Discharge: Care Discharge Data Primary Care Provider: Miscellaneous,Doctor
[2023-01-24 11:31] VITALS: BP 132/80; PULSE 70; RESP 16; TEMP 36.5
== END 2023-01-24 14:20 | disposition home or self-care (01) | DRG 807 ==
PROVIDERS: Admitting Provider Student in an Organized Health Care Education/Training Program; Referring Provider Student in an Organized Health Care Education/Training Program; Visit Provider Student in an Organized Health Care Education/Training Program
DX: O70.1 Second degree perineal laceration during delivery (principal); Z37.0 Single live birth; Z3A.39 39 weeks gestation of pregnancy; O43.193 Other malformation of placenta, third trimester
CPT/HCPCS: 36415; 59050; 59400; 59409; 85025; 86850; 86900; 86901; 87491; 87591; G0379; J2590

== ENCOUNTER → 2025-03-16 10:53 | Outpatient (CLI) | payer OTHER, SELFPAY ==
[2025-03-16 12:17] LABS: Add Manual Diff / Slide Review NO; Hematocrit 39.3 % (36-46); Hemoglobin 13.7 g/dL (12.0-16.0); Lymphocytes Absolute Auto 2500 /uL (1100-4500); Mean Corpuscular HGB Conc 34.9 % (30-36); Mean Corpuscular Hemoglobin 31.6 PG (26-34); Mean Corpuscular Volume 90.3 fL (80-100); Platelet Count 286 X10^3/uL (150-400)
[2025-03-16 12:40] LABS: HEMOLYSIS < 15 (0-50); Iron 98 ug/dL (37-170)
[2025-03-16 12:41] LABS: Blood Urea Nitrogen 13 mg/dL (7-17); Calcium 9.6 mg/dL (8.4-10.2); Carbon Dioxide 24 mmol/L (22-32); Chloride 106 mmol/L (98-107); Estimated Glomerular Filt Rate > 60 mL/min (>60); Glucose 89 mg/dL (70-99); HEMOLYSIS < 15 (0-50); Potassium 4.2 mmol/L (3.4-5.1); Sodium 140 mmol/L (137-145)
[2025-03-16 12:52] LABS: Percent Iron Saturation 29 % (15-50); Total Iron Binding Capacity 341 ug/dL (265-497); Transferrin 284 mg/dL (206-381)
[2025-03-16 13:12] LABS: TSH w/ Reflex to FT4 1.11 uIU/mL (0.47-4.68)
[2025-03-16 13:17] LABS: Ferritin 11 ng/mL (6-137)
== END ==
PROVIDERS: PCP Nurse Practitioner Family; Referring Provider Nurse Practitioner Family; Visit Provider Nurse Practitioner Family
DX: R53.83 Other fatigue (principal); G47.9 Sleep disorder, unspecified; F41.9 Anxiety disorder, unspecified; F32.A Depression, unspecified
CPT/HCPCS: 36415; 80048; 82728; 83540; 83550; 84443; 85025